=== PATIENT | female | born 1960 | race Caucasian/White ===

== ENCOUNTER → 2016-10-16 | Outpatient (CLI) | payer OTHER ==
[~2016-10-16] MED LIST: BACTRIM DS 8001 TA1 PO; CARAFATE1 G1 PO; LANTUS100 U/ML SC; METFORMIN500 MG PO; MULTIVITAMIN1 CTB PO; OMEPRAZOLE20 MG PO; PEPCID20 MG PO; PHENERGAN25 M1 PO; VICO10300 PO; ZOFRAN4 MG PO
[2016-10-16 08:48] LABS: ALBUMIN 3.9 gm/dl (3.1-4.5); ALKALINE PHOSPHATASE 95 U/L (45-117); BILIRUBIN, TOTAL 0.5 mg/dl (0.2-1.0); BUN 15 mg/dl (7-24); CARBON DIOXIDE 28 mmol/L (21-32); CHLORIDE 108 mmol/L (98-107); CHOLESTEROL 279 mg/dL (<200); CPK 288 U/L (26-192); EST GLOM FILT AFRICAN AMERICAN > 60 ml/min; GLUCOSE 134 mg/dL (65-99); HDL CHOLESTEROL 60 mg/dl (40-60); LDL CHOLESTEROL 161 mg/dL (9-159); SGOT/AST 26 IU/L (3-35); SGPT/ALT 27 U/L (12-78); SODIUM 145 mmol/L (136-145); TOTAL PROTEIN 6.6 gm/dL (6.4-8.2); TRIGLYCERIDES 288 mg/dl (<150); VLDL CHOLESTEROL 58 mg/dL (6-40)
[2016-10-16 08:54] LABS: HEMOGLOBIN A1c 7.3 % (4.8-5.6)
== END | disposition home or self-care (01) ==
LOC: LAB 07:46
PROVIDERS: Family Medicine
DX: E11.9 Type 2 diabetes mellitus without complications (principal); E55.9 Vitamin D deficiency, unspecified; E78.00 Pure hypercholesterolemia, unspecified

== ENCOUNTER 2017-01-06 17:42 | Emergency (ER) | payer OTHER ==
[~2017-01-06] VITALS: Ht 167.6 cm; Wt 77.1 kg
[2017-01-06 18:04] VITALS: BP 178/94
[2017-01-06 18:33] LABS: BASO % 0.5 % (0.0-1.0); EOS # 0.2 10*3/uL (0.0-0.4); EOS % 1.8 % (1.0-4.0); HEMATOCRIT 39.6 % (37.0-47.0); LYMPH # 2.3 10*3/uL (1.3-4.4); LYMPH % 27.1 % (27.0-41.0); MEAN CELL VOLUME 92.1 fl (81.0-99.0); MEAN CORPUSCULAR HGB 30.2 pg (27.0-31.0); MEAN CORPUSCULAR HGB CONC 32.8 g/dl (33.0-37.0); MEAN PLATELET VOLUME 11.1 fl (9.6-12.3); MONO # 0.5 10*3/uL (0.1-1.0); MONO % 6.3 % (3.0-9.0); NEUT # 5.4 10*3/uL (2.3-7.9); NEUT % 64.1 % (47.0-73.0); PLATELET COUNT AUTOMATED 218 10*3/uL (130-400); RED CELL DISTRI WIDTH 11.6 % (0-14.5); WHITE BLOOD COUNT 8.4 10*3/uL (4.8-10.8)
[2017-01-06] MEDS ORDERED: ZOFRAN4 MG PO (18:37)
[2017-01-06 18:48] LABS: ALBUMIN 3.9 gm/dl (3.1-4.5); ALKALINE PHOSPHATASE 82 U/L (45-117); BILIRUBIN, TOTAL 0.3 mg/dl (0.2-1.0); BUN 18 mg/dl (7-24); CARBON DIOXIDE 28 mmol/L (21-32); CHLORIDE 107 mmol/L (98-107); EST GLOM FILT AFRICAN AMERICAN > 60 ml/min; GLUCOSE 137 mg/dL (65-99); POTASSIUM 4.5 mmol/L (3.5-5.1); SGOT/AST 14 IU/L (3-35); SGPT/ALT 16 U/L (12-78); SODIUM 141 mmol/L (136-145); TOTAL PROTEIN 7.1 gm/dL (6.4-8.2)
[2017-01-06] MEDS ORDERED: FLOMAX0.4 MG PO (20:29)
== END 2017-01-06 20:56 | disposition home or self-care (01) ==
LOC: ED 17:42
PROVIDERS: Nurse Practitioner
DX: N20.0 Calculus of kidney (principal); K80.00 Calculus of gallbladder with acute cholecystitis without obstruction; Z98.84 Bariatric surgery status

== ENCOUNTER → 2017-02-27 | Outpatient (CLI) | payer OTHER ==
[~2017-02-27] MED LIST changes: +FLOMAX0.4 MG PO
[2017-02-27 07:23] LABS: HEMOGLOBIN 13.1 g/dl (12.0-16.0); MEAN CELL VOLUME 91.7 fl (81.0-99.0); MEAN CORPUSCULAR HGB CONC 32.8 g/dl (33.0-37.0); MEAN PLATELET VOLUME 11.2 fl (9.6-12.3); RED BLOOD COUNT 4.36 10*6/uL (4.10-5.10); RED CELL DISTRI WIDTH 11.5 % (0-14.5); WHITE BLOOD COUNT 5.3 10*3/uL (4.8-10.8)
[2017-02-27 07:49] LABS: ALBUMIN 3.8 gm/dl (3.1-4.5); BUN 16 mg/dl (7-24); CHLORIDE 104 mmol/L (98-107); CHOLESTEROL 209 mg/dL (<200); POTASSIUM 4.1 mmol/L (3.5-5.1); SGOT/AST 18 IU/L (3-35); SGPT/ALT 19 U/L (12-78); SODIUM 141 mmol/L (136-145); TOTAL PROTEIN 6.9 gm/dL (6.4-8.2)
[2017-02-27 07:59] LABS: ALKALINE PHOSPHATASE 73 U/L (45-117); CREATININE 0.97 mg/dL (0.55-1.02); HDL CHOLESTEROL 60 mg/dl (40-60); LDL CHOLESTEROL 128 mg/dL (9-159); TRIGLYCERIDES 105 mg/dl (<150); VLDL CHOLESTEROL 21 mg/dL (6-40)
== END | disposition home or self-care (01) ==
LOC: LAB 07:04
PROVIDERS: Family Medicine
DX: E55.9 Vitamin D deficiency, unspecified (principal); E66.9 Obesity, unspecified; R10.9 Unspecified abdominal pain; R53.83 Other fatigue; R73.09 Other abnormal glucose

== ENCOUNTER 2024-05-04 15:11 | Emergency (ER) | payer BC ==
[~2024-05-04] VITALS: Ht 162.5 cm; Wt 74.8 kg
[2024-05-04 15:24] VITALS: BP 163/68
[2024-05-04] MEDS ORDERED: NEURONTIN300 MG PO (15:36)
[2024-05-04] MEDS ORDERED: GLIMEPIRIDE4 M1 PO (15:37)
[2024-05-04] MEDS ORDERED: METFORMIN XR500 MG PO (15:37)
[2024-05-04 15:48] LABS: BASO % 0.6 % (0.0-1.0); EOS # 0.1 10*3/uL (0.0-0.4); EOS % 2.3 % (1.0-4.0); HEMATOCRIT 30.4 % (37.0-47.0); MEAN CORPUSCULAR HGB 21.3 pg (27.0-31.0); MEAN CORPUSCULAR HGB CONC 27.6 g/dl (33.0-37.0); MONO # 0.5 10*3/uL (0.1-1.0); MONO % 7.8 % (3.0-9.0); NEUT # 3.9 10*3/uL (2.3-7.9); PLATELET COUNT AUTOMATED 319 10*3/uL (130-400); RED BLOOD COUNT 3.95 10*6/uL (4.10-5.10); RED CELL DISTRI WIDTH 15.9 % (0-14.5); WHITE BLOOD COUNT 6.2 10*3/uL (4.8-10.8)
[2024-05-04 16:06] LABS: POTASSIUM 4.3 mmol/L (3.4-5.1)
[2024-05-04 16:08] LABS: ACT PARTIAL THROMBO TIME 25.6 SECONDS (20.0-32.1)
[2024-05-04] MEDS ORDERED: HYDROCODONE-AC1 EAC1 PO (17:22)
== END 2024-05-04 17:50 | disposition home or self-care (01) ==
LOC: ED 15:11
PROVIDERS: Physician Assistant Medical
DX: R07.89 Other chest pain (principal); M79.602 Pain in left arm; E11.9 Type 2 diabetes mellitus without complications; Z79.84 Long term (current) use of oral hypoglycemic drugs; Z79.899 Other long term (current) drug therapy; Z98.84 Bariatric surgery status

== ENCOUNTER → 2024-05-12 | Outpatient (CLI) | payer BC ==
[~2024-05-12] MED LIST changes: +GLIMEPIRIDE4 M1 PO; +HYDROCODONE-AC1 EAC1 PO; +IOHEXOL 300 MG/ML 100 ML VIAL IV ONE; +METFORMIN XR500 MG PO; +NEURONTIN300 MG PO
== END | disposition home or self-care (01) ==
LOC: CT 12:47
PROVIDERS: ATTEND Family Medicine
DX: S22.32XA Fracture of one rib, left side, initial encounter for closed fracture (principal); N32.89 Other specified disorders of bladder; N20.0 Calculus of kidney; E04.1 Nontoxic single thyroid nodule; R06.02 Shortness of breath; R07.9 Chest pain, unspecified; X58.XXXA Exposure to other specified factors, initial encounter; Y93.89 Activity, other specified; Y92.89 Other specified places as the place of occurrence of the external cause; Y99.8 Other external cause status

== ENCOUNTER → 2024-05-20 | Outpatient (CLI) | payer BC ==
[~2024-05-20] MED LIST changes: -IOHEXOL 300 MG/ML 100 ML VIAL IV ONE
== END | disposition home or self-care (01) ==
LOC: US 07:58
PROVIDERS: ATTEND Family Medicine
DX: E04.2 Nontoxic multinodular goiter (principal)

== ENCOUNTER → 2024-06-01 | Outpatient (CLI) | payer BC | END | disposition home or self-care (01) | LOC: SDC 11:00 → EDSTATUS 11:00 | PROVIDERS: Radiology Diagnostic Radiology; ATTEND Family Medicine | DX: E04.2 Nontoxic multinodular goiter (principal) ==

== ENCOUNTER → 2024-08-23 | Outpatient (CLI) | payer BC, OTHER | END | disposition home or self-care (01) | LOC: US 10:00 | PROVIDERS: ATTEND Family Medicine | DX: K80.20 Calculus of gallbladder without cholecystitis without obstruction (principal); N17.0 Acute kidney failure with tubular necrosis ==

== ENCOUNTER → 2024-09-01 | Outpatient (CLI) | payer BC, OTHER ==
[2024-09-01 12:23] LABS: HEMATOCRIT 26.9 % (37.0-47.0); MEAN CELL VOLUME 83.5 fl (81.0-99.0); MEAN CORPUSCULAR HGB 25.8 pg (27.0-31.0); MEAN CORPUSCULAR HGB CONC 30.9 g/dl (33.0-37.0); RED BLOOD COUNT 3.22 10*6/uL (4.10-5.10); RED CELL DISTRI WIDTH 18.1 % (0-14.5); WHITE BLOOD COUNT 7.6 10*3/uL (4.8-10.8)
[2024-09-01 13:09] LABS: FREE T4 1.09 ng/dl (0.89-1.76); POTASSIUM 5.1 mmol/L (3.4-5.1); TOTAL PROTEIN 6.7 gm/dL (6.0-8.0)
[2024-09-01 13:49] LABS: VITAMIN D, 25-HYDROXY 29.8 ng/mL (30-100)
== END | disposition home or self-care (01) ==
LOC: LAB 12:02
PROVIDERS: ATTEND Family Medicine
DX: C73 Malignant neoplasm of thyroid gland (principal); I10 Essential (primary) hypertension; E74.9 Disorder of carbohydrate metabolism, unspecified; R25.1 Tremor, unspecified; E55.9 Vitamin D deficiency, unspecified; K21.9 Gastro-esophageal reflux disease without esophagitis

== ENCOUNTER → 2024-09-20 | Outpatient (CLI) | payer BC, OTHER ==
[~2024-09-20] MED LIST changes: +'CLONIDINE0.1 MG PO; +AMLODIPINE BESY10 MG PO; +CALCITRIOL0.5 MCG PO; +CALCIUM CARBON500 M3 PO; +CALCIUM CITRAT200 M1 PO; +CITALOPRAM10 MG PO; +GLIMEPIRIDE2 MG PO; +LEVOTHYROXINE125 MCG PO; +VITAMIN D350 MC2 PO
[2024-09-20 12:38] LABS: POTASSIUM 5.2 mmol/L (3.4-5.1); TOTAL PROTEIN 6.3 gm/dL (6.0-8.0)
== END | disposition home or self-care (01) ==
LOC: LAB 11:39
PROVIDERS: ATTEND Internal Medicine Nephrology
DX: N18.4 Chronic kidney disease, stage 4 (severe) (principal); E87.6 Hypokalemia

== ENCOUNTER → 2024-09-27 | Outpatient (CLI) | payer BC, OTHER ==
[2024-09-27 16:24] LABS: POTASSIUM 5.4 mmol/L (3.4-5.1); TOTAL PROTEIN 6.7 gm/dL (6.0-8.0)
[2024-09-27 16:26] LABS: VITAMIN D, 25-HYDROXY 48.4 ng/mL (30-100)
== END | disposition home or self-care (01) ==
LOC: LAB 15:39
PROVIDERS: ATTEND Internal Medicine Nephrology
DX: E11.22 Type 2 diabetes mellitus with diabetic chronic kidney disease (principal); N18.32 Chronic kidney disease, stage 3b; E83.9 Disorder of mineral metabolism, unspecified; N17.9 Acute kidney failure, unspecified

== ENCOUNTER → 2024-10-04 | Outpatient (CLI) | payer BC, OTHER ==
[2024-10-04 09:06] LABS: POTASSIUM 4.3 mmol/L (3.4-5.1); TOTAL PROTEIN 6.2 gm/dL (6.0-8.0)
[2024-10-04 09:09] LABS: VITAMIN D, 25-HYDROXY 46.7 ng/mL (30-100)
== END | disposition home or self-care (01) ==
LOC: LAB 08:04
PROVIDERS: ATTEND Internal Medicine Nephrology
DX: N18.4 Chronic kidney disease, stage 4 (severe) (principal); E87.6 Hypokalemia

== ENCOUNTER → 2024-10-11 | Outpatient (CLI) | payer BC, OTHER ==
[2024-10-11 13:18] LABS: POTASSIUM 5.4 mmol/L (3.4-5.1); TOTAL PROTEIN 6.4 gm/dL (6.0-8.0)
[2024-10-11 13:22] LABS: VITAMIN D, 25-HYDROXY 54.1 ng/mL (30-100)
== END | disposition home or self-care (01) ==
LOC: LAB 11:59
PROVIDERS: ATTEND Internal Medicine Nephrology
DX: E11.22 Type 2 diabetes mellitus with diabetic chronic kidney disease (principal); N18.32 Chronic kidney disease, stage 3b; N17.9 Acute kidney failure, unspecified; E83.52 Hypercalcemia; E83.9 Disorder of mineral metabolism, unspecified

== ENCOUNTER → 2024-10-18 | Outpatient (CLI) | payer BC, OTHER ==
[2024-10-18 13:28] LABS: POTASSIUM 5.1 mmol/L (3.4-5.1); TOTAL PROTEIN 6.6 gm/dL (6.0-8.0)
[2024-10-18 13:40] LABS: VITAMIN D, 25-HYDROXY 42.4 ng/mL (30-100)
== END | disposition home or self-care (01) ==
LOC: LAB 12:24
PROVIDERS: ATTEND Internal Medicine Nephrology
DX: E11.22 Type 2 diabetes mellitus with diabetic chronic kidney disease (principal); N18.32 Chronic kidney disease, stage 3b; N17.9 Acute kidney failure, unspecified; E83.9 Disorder of mineral metabolism, unspecified

== ENCOUNTER → 2024-10-26 | Outpatient (CLI) | payer BC, OTHER ==
[2024-10-26 13:41] LABS: POTASSIUM 4.5 mmol/L (3.4-5.1); TOTAL PROTEIN 6.5 gm/dL (6.0-8.0)
[2024-10-26 13:44] LABS: FREE T4 1.56 ng/dl (0.89-1.76); POTASSIUM 4.6 mmol/L (3.4-5.1)
[2024-10-26 13:53] LABS: VITAMIN D, 25-HYDROXY 48.2 ng/mL (30-100)
== END | disposition home or self-care (01) ==
LOC: LAB 12:26
PROVIDERS: Internal Medicine Endocrinology, Diabetes & Metabolism; ATTEND Internal Medicine Nephrology
DX: E11.22 Type 2 diabetes mellitus with diabetic chronic kidney disease (principal); N18.32 Chronic kidney disease, stage 3b; E83.9 Disorder of mineral metabolism, unspecified; E83.52 Hypercalcemia; N17.9 Acute kidney failure, unspecified

== ENCOUNTER → 2024-10-27 | Outpatient (CLI) | payer BC, OTHER | END | disposition home or self-care (01) | LOC: LAB 08:55 | PROVIDERS: ATTEND Internal Medicine Nephrology | DX: N20.0 Calculus of kidney (principal); N17.9 Acute kidney failure, unspecified ==

== ENCOUNTER → 2024-10-28 | Outpatient (CLI) | payer BC, OTHER | END | disposition home or self-care (01) | LOC: LAB 10:33 | PROVIDERS: ATTEND Family Medicine | DX: N20.0 Calculus of kidney (principal); N17.9 Acute kidney failure, unspecified ==

== ENCOUNTER → 2024-11-01 | Outpatient (CLI) | payer BC, OTHER ==
[2024-11-01 17:27] LABS: POTASSIUM 5.1 mmol/L (3.4-5.1); TOTAL PROTEIN 6.5 gm/dL (6.0-8.0)
[2024-11-01 17:30] LABS: VITAMIN D, 25-HYDROXY 40.8 ng/mL (30-100)
== END | disposition home or self-care (01) ==
LOC: LAB 16:43
PROVIDERS: ATTEND Internal Medicine Nephrology
DX: E11.22 Type 2 diabetes mellitus with diabetic chronic kidney disease (principal); N18.32 Chronic kidney disease, stage 3b; E83.52 Hypercalcemia; E83.9 Disorder of mineral metabolism, unspecified; N17.9 Acute kidney failure, unspecified

== ENCOUNTER → 2024-11-08 | Outpatient (CLI) | payer BC, OTHER ==
[2024-11-08 16:15] LABS: TOTAL PROTEIN 6.5 gm/dL (6.0-8.0)
[2024-11-08 16:17] LABS: VITAMIN D, 25-HYDROXY 42.6 ng/mL (30-100)
== END | disposition home or self-care (01) ==
LOC: LAB 15:27
PROVIDERS: Internal Medicine Nephrology; ATTEND Family Medicine
DX: E11.22 Type 2 diabetes mellitus with diabetic chronic kidney disease (principal); N18.32 Chronic kidney disease, stage 3b; E83.9 Disorder of mineral metabolism, unspecified; E83.52 Hypercalcemia

== ENCOUNTER → 2024-11-15 | Outpatient (CLI) | payer BC, OTHER ==
[2024-11-15 12:55] LABS: POTASSIUM 5.5 mmol/L (3.4-5.1); TOTAL PROTEIN 6.3 gm/dL (6.0-8.0)
[2024-11-15 12:58] LABS: VITAMIN D, 25-HYDROXY 50.6 ng/mL (30-100)
== END | disposition home or self-care (01) ==
LOC: LAB 12:04
PROVIDERS: ATTEND Internal Medicine Nephrology
DX: E11.22 Type 2 diabetes mellitus with diabetic chronic kidney disease (principal); N18.32 Chronic kidney disease, stage 3b; E83.9 Disorder of mineral metabolism, unspecified; N17.9 Acute kidney failure, unspecified; E83.52 Hypercalcemia

== ENCOUNTER → 2024-11-23 | Outpatient (CLI) | payer BC, OTHER ==
[2024-11-23 10:09] LABS: POTASSIUM 4.4 mmol/L (3.4-5.1); TOTAL PROTEIN 6.2 gm/dL (6.0-8.0)
[2024-11-23 10:12] LABS: VITAMIN D, 25-HYDROXY 47.8 ng/mL (30-100)
== END | disposition home or self-care (01) ==
LOC: LAB 08:44
PROVIDERS: ATTEND Internal Medicine Nephrology
DX: E11.22 Type 2 diabetes mellitus with diabetic chronic kidney disease (principal); N18.32 Chronic kidney disease, stage 3b; N17.9 Acute kidney failure, unspecified; E83.52 Hypercalcemia; E83.9 Disorder of mineral metabolism, unspecified

== ENCOUNTER → 2024-11-29 | Outpatient (CLI) | payer BC, OTHER ==
[2024-11-29 10:45] LABS: BASO # 0.1 10*3/uL (0.0-0.1); EOS # 0.2 10*3/uL (0.0-0.4); EOS % 3.8 % (1.0-4.0); HEMATOCRIT 28.1 % (37.0-47.0); MEAN CELL VOLUME 89.2 fl (81.0-99.0); MEAN CORPUSCULAR HGB 28.9 pg (27.0-31.0); MEAN CORPUSCULAR HGB CONC 32.4 g/dl (33.0-37.0); MEAN PLATELET VOLUME 11.3 fl (9.6-12.3); MONO # 0.5 10*3/uL (0.1-1.0); MONO % 7.6 % (3.0-9.0); NEUT # 3.8 10*3/uL (2.3-7.9); NEUT % 62.5 % (47.0-73.0); PLATELET COUNT AUTOMATED 214 10*3/uL (130-400); RED BLOOD COUNT 3.15 10*6/uL (4.10-5.10); RED CELL DISTRI WIDTH 12.9 % (0-14.5)
[2024-11-29 11:05] LABS: POTASSIUM 5.1 mmol/L (3.4-5.1); TOTAL PROTEIN 6.4 gm/dL (6.0-8.0)
[2024-11-29 11:09] LABS: FREE T4 1.45 ng/dl (0.89-1.76)
[2024-11-29 11:42] LABS: VITAMIN D, 25-HYDROXY 45.5 ng/mL (30-100)
== END | disposition home or self-care (01) ==
LOC: LAB 10:13
PROVIDERS: Internal Medicine; ATTEND Internal Medicine Nephrology
DX: E11.22 Type 2 diabetes mellitus with diabetic chronic kidney disease (principal); N18.32 Chronic kidney disease, stage 3b; N17.9 Acute kidney failure, unspecified; E83.52 Hypercalcemia; E83.9 Disorder of mineral metabolism, unspecified; Z98.890 Other specified postprocedural states; Z86.2 Personal history of diseases of the blood and blood-forming organs and certain disorders involving the immune mechanism

== ENCOUNTER → 2024-12-06 | Outpatient (CLI) | payer BC, OTHER ==
[2024-12-06 12:22] LABS: BASO # 0.1 10*3/uL (0.0-0.1); BASO % 0.8 % (0.0-1.0); EOS # 0.2 10*3/uL (0.0-0.4); EOS % 3.1 % (1.0-4.0); MEAN CELL VOLUME 88.0 fl (81.0-99.0); MEAN CORPUSCULAR HGB 28.1 pg (27.0-31.0); MEAN PLATELET VOLUME 11.1 fl (9.6-12.3); MONO # 0.4 10*3/uL (0.1-1.0); MONO % 5.9 % (3.0-9.0); NEUT # 4.1 10*3/uL (2.3-7.9); NEUT % 66.8 % (47.0-73.0); NUCLEATED RED BLOOD CELL 0.0 % (0.0-0.0); NUCLEATED RED BLOOD CELL 0.0 10*3/uL (0.0-0.0); PLATELET COUNT AUTOMATED 226 10*3/uL (130-400); RED CELL DISTRI WIDTH 12.7 % (0-14.5)
[2024-12-06 12:49] LABS: BUN 59.0 mg/dl (9-23); SGPT/ALT 20.0 U/L (5-49)
[2024-12-06 14:08] LABS: VITAMIN D, 25-HYDROXY 48.2 ng/mL (30-100)
== END | disposition home or self-care (01) ==
LOC: LAB 00:38
PROVIDERS: Internal Medicine; Internal Medicine Nephrology; ATTEND Internal Medicine Endocrinology, Diabetes & Metabolism
DX: E11.22 Type 2 diabetes mellitus with diabetic chronic kidney disease (principal); N18.32 Chronic kidney disease, stage 3b; E83.52 Hypercalcemia; E83.9 Disorder of mineral metabolism, unspecified

== ENCOUNTER → 2024-12-13 | Outpatient (CLI) | payer BC, OTHER ==
[2024-12-13 10:16] LABS: BASO # 0.1 10*3/uL (0.0-0.1); BASO % 1.0 % (0.0-1.0); EOS # 0.3 10*3/uL (0.0-0.4); EOS % 5.2 % (1.0-4.0); MEAN CELL VOLUME 90.1 fl (81.0-99.0); MEAN CORPUSCULAR HGB 28.7 pg (27.0-31.0); MEAN PLATELET VOLUME 10.8 fl (9.6-12.3); MONO # 0.4 10*3/uL (0.1-1.0); MONO % 6.9 % (3.0-9.0); NEUT # 3.2 10*3/uL (2.3-7.9); NEUT % 61.9 % (47.0-73.0); NUCLEATED RED BLOOD CELL 0.0 % (0.0-0.0); NUCLEATED RED BLOOD CELL 0.0 10*3/uL (0.0-0.0); PLATELET COUNT AUTOMATED 203 10*3/uL (130-400); RED CELL DISTRI WIDTH 13.0 % (0-14.5)
[2024-12-13 10:41] LABS: BUN 57.0 mg/dl (9-23); SGPT/ALT 24.0 U/L (5-49)
[2024-12-13 10:43] LABS: BUN 58.0 mg/dl (9-23); FREE T4 1.59 ng/dl (0.89-1.76)
== END | disposition home or self-care (01) ==
LOC: LAB 02:05
PROVIDERS: Internal Medicine; Internal Medicine Endocrinology, Diabetes & Metabolism; Internal Medicine Nephrology; ATTEND Family Medicine
DX: E55.9 Vitamin D deficiency, unspecified (principal); Z23 Encounter for immunization; Z86.2 Personal history of diseases of the blood and blood-forming organs and certain disorders involving the immune mechanism

== ENCOUNTER → 2024-12-20 | Outpatient (CLI) | payer BC, OTHER ==
[2024-12-20 11:20] LABS: BASO # 0.0 10*3/uL (0.0-0.1); BASO % 0.6 % (0.0-1.0); EOS # 0.2 10*3/uL (0.0-0.4); EOS % 3.4 % (1.0-4.0); MEAN CELL VOLUME 90.5 fl (81.0-99.0); MEAN CORPUSCULAR HGB 28.7 pg (27.0-31.0); MEAN PLATELET VOLUME 10.3 fl (9.6-12.3); MONO # 0.4 10*3/uL (0.1-1.0); MONO % 7.4 % (3.0-9.0); NEUT # 3.4 10*3/uL (2.3-7.9); NEUT % 63.8 % (47.0-73.0); NUCLEATED RED BLOOD CELL 0.0 % (0.0-0.0); NUCLEATED RED BLOOD CELL 0.0 10*3/uL (0.0-0.0); PLATELET COUNT AUTOMATED 194 10*3/uL (130-400); RED CELL DISTRI WIDTH 12.9 % (0-14.5)
[2024-12-20 11:54] LABS: BUN 50.0 mg/dl (9-23); SGPT/ALT 24.0 U/L (5-49)
[2024-12-20 11:55] LABS: VITAMIN D, 25-HYDROXY 53.8 ng/mL (30-100)
[2024-12-20 11:59] LABS: BUN 52.0 mg/dl (9-23); FREE T4 1.43 ng/dl (0.89-1.76)
== END | disposition home or self-care (01) ==
LOC: LAB 02:03 → EDSTATUS 14:58
PROVIDERS: Internal Medicine; Internal Medicine Endocrinology, Diabetes & Metabolism; Internal Medicine Nephrology; ATTEND Internal Medicine Endocrinology, Diabetes & Metabolism
DX: E11.22 Type 2 diabetes mellitus with diabetic chronic kidney disease (principal); N18.32 Chronic kidney disease, stage 3b; C73 Malignant neoplasm of thyroid gland; N17.9 Acute kidney failure, unspecified; E83.51 Hypocalcemia; E83.52 Hypercalcemia; E83.9 Disorder of mineral metabolism, unspecified; Z86.2 Personal history of diseases of the blood and blood-forming organs and certain disorders involving the immune mechanism

== ENCOUNTER → 2024-12-27 | Outpatient (CLI) | payer BC, OTHER ==
[2024-12-27 11:15] LABS: BASO # 0.0 10*3/uL (0.0-0.1); BASO % 0.8 % (0.0-1.0); EOS # 0.2 10*3/uL (0.0-0.4); EOS % 4.5 % (1.0-4.0); MEAN CELL VOLUME 90.0 fl (81.0-99.0); MEAN CORPUSCULAR HGB 28.3 pg (27.0-31.0); MEAN PLATELET VOLUME 10.9 fl (9.6-12.3); MONO # 0.4 10*3/uL (0.1-1.0); MONO % 6.9 % (3.0-9.0); NEUT # 3.1 10*3/uL (2.3-7.9); NEUT % 61.4 % (47.0-73.0); NUCLEATED RED BLOOD CELL 0.0 % (0.0-0.0); NUCLEATED RED BLOOD CELL 0.0 10*3/uL (0.0-0.0); PLATELET COUNT AUTOMATED 194 10*3/uL (130-400); RED CELL DISTRI WIDTH 12.6 % (0-14.5)
[2024-12-27 11:47] LABS: VITAMIN D, 25-HYDROXY 55.1 ng/mL (30-100)
[2024-12-27 11:48] LABS: BUN 52.0 mg/dl (9-23); FREE T4 1.51 ng/dl (0.89-1.76)
== END | disposition home or self-care (01) ==
LOC: LAB 02:10
PROVIDERS: Internal Medicine; Internal Medicine Endocrinology, Diabetes & Metabolism; ATTEND Internal Medicine Endocrinology, Diabetes & Metabolism
DX: C73 Malignant neoplasm of thyroid gland (principal); E55.9 Vitamin D deficiency, unspecified; Z86.2 Personal history of diseases of the blood and blood-forming organs and certain disorders involving the immune mechanism

== ENCOUNTER → 2025-01-05 | Outpatient (CLI) | payer BC, OTHER ==
[2025-01-05 13:07] LABS: BASO # 0.1 10*3/uL (0.0-0.1); BASO % 0.9 % (0.0-1.0); EOS # 0.3 10*3/uL (0.0-0.4); EOS % 5.3 % (1.0-4.0); MEAN CELL VOLUME 90.4 fl (81.0-99.0); MEAN CORPUSCULAR HGB 28.5 pg (27.0-31.0); MEAN PLATELET VOLUME 11.3 fl (9.6-12.3); MONO # 0.4 10*3/uL (0.1-1.0); MONO % 7.4 % (3.0-9.0); NEUT # 3.2 10*3/uL (2.3-7.9); NEUT % 56.3 % (47.0-73.0); NUCLEATED RED BLOOD CELL 0.0 % (0.0-0.0); NUCLEATED RED BLOOD CELL 0.0 10*3/uL (0.0-0.0); PLATELET COUNT AUTOMATED 203 10*3/uL (130-400); RED CELL DISTRI WIDTH 12.6 % (0-14.5)
[2025-01-05 13:35] LABS: BUN 54.0 mg/dl (9-23); SGPT/ALT 31.0 U/L (5-49)
[2025-01-05 13:38] LABS: BUN 54.0 mg/dl (9-23); FREE T4 1.58 ng/dl (0.89-1.76)
[2025-01-05 13:52] LABS: VITAMIN D, 25-HYDROXY 55.7 ng/mL (30-100)
== END | disposition home or self-care (01) ==
LOC: LAB 12-30 15:11
PROVIDERS: Internal Medicine; Internal Medicine Endocrinology, Diabetes & Metabolism; Internal Medicine Nephrology; ATTEND Internal Medicine Endocrinology, Diabetes & Metabolism
DX: E55.9 Vitamin D deficiency, unspecified (principal); Z86.2 Personal history of diseases of the blood and blood-forming organs and certain disorders involving the immune mechanism

== ENCOUNTER → 2025-02-07 | Outpatient (CLI) | payer BC, OTHER ==
[2025-02-07 11:03] LABS: BASO # 0.0 10*3/uL (0.0-0.1); BASO % 0.5 % (0.0-1.0); EOS # 1.0 10*3/uL (0.0-0.4); EOS % 12.8 % (1.0-4.0); MEAN CELL VOLUME 91.3 fl (81.0-99.0); MEAN CORPUSCULAR HGB 29.4 pg (27.0-31.0); MEAN PLATELET VOLUME 11.2 fl (9.6-12.3); MONO # 0.6 10*3/uL (0.1-1.0); MONO % 7.8 % (3.0-9.0); NEUT # 4.6 10*3/uL (2.3-7.9); NEUT % 59.8 % (47.0-73.0); NUCLEATED RED BLOOD CELL 0.0 % (0.0-0.0); NUCLEATED RED BLOOD CELL 0.0 10*3/uL (0.0-0.0); PLATELET COUNT AUTOMATED 247 10*3/uL (130-400); RED CELL DISTRI WIDTH 13.1 % (0-14.5)
[2025-02-07 11:35] LABS: BUN 67.0 mg/dl (9-23); SGPT/ALT 19.0 U/L (5-49)
== END | disposition home or self-care (01) ==
LOC: LAB 09:30
PROVIDERS: ATTEND Internal Medicine Nephrology
DX: E83.39 Other disorders of phosphorus metabolism (principal); N18.5 Chronic kidney disease, stage 5

== ENCOUNTER → 2025-03-14 | Outpatient (CLI) | payer BC, OTHER ==
[2025-03-14 11:23] LABS: BASO # 0.1 10*3/uL (0.0-0.1); BASO % 1.4 % (0.0-1.0); EOS # 0.7 10*3/uL (0.0-0.4); EOS % 9.1 % (1.0-4.0); MEAN CELL VOLUME 89.5 fl (81.0-99.0); MEAN CORPUSCULAR HGB 28.5 pg (27.0-31.0); MEAN PLATELET VOLUME 10.3 fl (9.6-12.3); MONO # 0.5 10*3/uL (0.1-1.0); MONO % 7.0 % (3.0-9.0); NEUT # 4.3 10*3/uL (2.3-7.9); NEUT % 60.7 % (47.0-73.0); NUCLEATED RED BLOOD CELL 0.0 % (0.0-0.0); NUCLEATED RED BLOOD CELL 0.0 10*3/uL (0.0-0.0); PLATELET COUNT AUTOMATED 246 10*3/uL (130-400); RED CELL DISTRI WIDTH 12.1 % (0-14.5)
[2025-03-14 12:15] LABS: BUN 69.0 mg/dl (9-23); SGPT/ALT 9.0 U/L (5-49)
== END | disposition home or self-care (01) ==
LOC: LAB 10:57
PROVIDERS: ATTEND Internal Medicine Nephrology
DX: E83.39 Other disorders of phosphorus metabolism (principal); N18.5 Chronic kidney disease, stage 5

== ENCOUNTER → 2025-04-18 | Outpatient (CLI) | payer BC, OTHER ==
[2025-04-18 11:14] LABS: BASO # 0.1 10*3/uL (0.0-0.1); BASO % 1.4 % (0.0-1.0); EOS # 0.6 10*3/uL (0.0-0.4); EOS % 8.6 % (1.0-4.0); MEAN CELL VOLUME 88.7 fl (81.0-99.0); MEAN CORPUSCULAR HGB 28.8 pg (27.0-31.0); MEAN PLATELET VOLUME 10.8 fl (9.6-12.3); MONO # 0.5 10*3/uL (0.1-1.0); MONO % 8.0 % (3.0-9.0); NEUT # 4.0 10*3/uL (2.3-7.9); NEUT % 60.7 % (47.0-73.0); NUCLEATED RED BLOOD CELL 0.0 % (0.0-0.0); NUCLEATED RED BLOOD CELL 0.0 10*3/uL (0.0-0.0); PLATELET COUNT AUTOMATED 209 10*3/uL (130-400); RED CELL DISTRI WIDTH 12.3 % (0-14.5)
[2025-04-18 11:56] LABS: BUN 72.0 mg/dl (9-23); SGPT/ALT 17.0 U/L (5-49)
== END | disposition home or self-care (01) ==
LOC: LAB 10:36
PROVIDERS: ATTEND Internal Medicine Nephrology
DX: E83.39 Other disorders of phosphorus metabolism (principal); N18.5 Chronic kidney disease, stage 5

== ENCOUNTER → 2025-04-25 | Outpatient (CLI) | payer BC, OTHER ==
[2025-04-25 10:30] LABS: BUN 68.0 mg/dl (9-23); SGPT/ALT 15.0 U/L (5-49)
== END | disposition home or self-care (01) ==
LOC: LAB 09:21
PROVIDERS: ATTEND Internal Medicine Nephrology
DX: I12.0 Hypertensive chronic kidney disease with stage 5 chronic kidney disease or end stage renal disease (principal); N18.5 Chronic kidney disease, stage 5